=== PATIENT | female | born 1995 | race Caucasian/White ===

== ENCOUNTER 2017-12-08 10:16 | Inpatient (IN) ==
[2017-12-08] MEDS ORDERED: Famotidine 20 MG/2 ML VIAL IVP ONE (10:50)
[2017-12-08] MEDS ORDERED: Oxytocin 20 units/ LR 1000 mL 20 UNIT/1,000 ML BAG IVC ONE (10:50)
[2017-12-08] MEDS ORDERED: CeFAZolin Premix DUPLEX 2,000 MG/50 ML BAG IVPB ONE (10:50)
[2017-12-08] MEDS ORDERED: Metoclopramide 10 MG/2 ML VIAL IVP ONE (10:50)
[2017-12-08] MEDS ORDERED: Ringers Solution, Lactated 1,000 ML ONE (10:54)
[2017-12-08] MEDS ORDERED: Ringers Solution, Lactated 1,000 ML IVC SCH ×3 (11:00→15:34)
[2017-12-08] MEDS ORDERED: Oxytocin 20 units/ LR 1000 mL 20 UNIT/1,000 ML BAG IVC SCH (11:00)
--- NOTE | 2017-12-08 11:14 | OB/GYN History & Physical ---
Date of Encounter: 12/08/17 Time of Encounter: 11:03 Assessment and Plan (1) Pre-eclampsia in third trimester Current visit: Yes Status: Acute at 37 2/7 weeks gestation with twin with elevated BP, weight gain , pain. Both fetuses are breech Admit to labor and delivery for primary section. NPO Ancef 2 gm Routine labwork Pt desires BPS (2) Breech presentation of fetus Current visit: Yes Status: Acute Both fetuses are breech Qualifiers: Fetus number: fetus 1 of multiple gestation Qualified Code(s): O32.1XX1 - Maternal care for breech presentation, fetus 1 (3) Dichorionic diamniotic twin in third trimester Current visit: Yes Status: Acute (4) 37 weeks gestation of Current visit: Yes Status: Acute (5) High-risk in third trimester Current visit: Yes Status: Acute History of Present Illness Chief complaint: Breech presentation of both twins, gestational hypertension HPI: Ms. Alexandra is a 22 year old female at 37 2/7 weeks gestation with twin . She was seen by Dr. Ortega in the office today and was complaining of GARRETT, occasional blurred vision, everything hurting, 3 pound weight gain in the last 3 days. She had a slightly elevated BP with +2 edema in the office today. She was sent over for delivery. She reports good movement. She denies LOF, VB. Blood Type: A+ GBS negative Hep B nonreactive RPR nonreactive HIV negative Rubella Immune Varicella Immune agree with above: Xiang Ortega note Patient is a 22-year-old 3 para 2 at 37-2/7 weeks twin gestation who was sent in from the office for delivery secondary to preeclampsia. The patient is a known twin gestation was scheduled for a primary section next week due to breech breech presentation. 4 the patient earlier this week she was noted at gained 5 pounds in 1 week blood pressure was elevated and she was spilling protein patient was asymptomatic at that time NST was reassuring PIH labs were obtained. Labs to come back showing all laps normal except AST which was elevated patient was scheduled to come in today for repeat blood pressure and assessment patient blood pressure was elevated again in the office she gained 3 pounds in 3 days and today she was complaining of headaches blurred vision and occasional scotoma. Patient is not feeling well states has started to get more swollen and hurting everywhere. Case was discussed with Dr. Coon who agreed patient should be delivered due to development of preeclampsia. Because baby is still breech breech section will be called. She has been having some contractions is feeling movement to both babies. Past Med Surg Social Fam HX - Past Medical History Medical history: no medical history, other Psychiatric history: no psych history - Past Surgical History Surgical History: no surgical history - Social History Smoking Status: Never smoker Smokeless Tobacco Status: No Alcohol use: occasionally Drug use: none - Family History Mother Living Status: Still Living Hx Family Cardiac Disorders: No Hx Family Respiratory Disorders: No Hx Family Cancer: No Hx Family GI Disorders: No Hx Family Endocrine Disorder: No Hx Family Neuromuscular Disorders: No Hx Family Neurologic Disorders: No Hx Family HEENT Disorders: No Hx Family Autoimmune Disorders: No Obstetrical History - Pregnancies : 3 Para: 2 Term: 2 : 0 Ab's: 0 Livin Medications and Allergies [id number]/Iron Fumarate/FA/Dss [ 19 Tablet] 1 each PO DAILY 12/29/15 [ History] Docusate [Colace] 100 mg PO BID #30 capsule 12/30/15 [Rx] Ibuprofen [Motrin] 600 mg PO TID PRN #30 tablet 12/30/15 [Rx] Ibuprofen [Motrin] 600 mg PO Q8HR PRN #20 tab 04/05/16 [Rx] Penicillin VK 500 mg PO QID #40 tablet 04/05/16 [Rx] traMADol [Ultram] 50 - 100 mg PO Q8HR PRN #20 tablet 04/05/16 [Rx] Vit Calc,Iron,Folic [ Vitamins] 1 each PO DAILY #90 tablet [Rx] 3 Allergy/AdvReac Type Severity Reaction Status Date / Time No Known Allergies Allergy Verified 12/19/15 01:08 Review of System OB All systems PM: reviewed and no additional remarkable complaints except as stated Exam - Constitutional Constitutional: well developed, well nourished, no acute distress, average body habitus - HEENT HEENT: PERRL, Normocephaly, Mucus Membranes Moist - Neck Neck exam: full ROM, normal inspection, trachea midline - Lungs Respiratory exam: CTAB - Cardiovascular Cardiovascular exam: RRR, +S1, +S2 - Abdomen Abdomen: Present: bowel sounds normal, gravid, non tender - Extremities Extremities exam: normal capillary refill, normal inspection, pedal edema, warm , radial pulses palpable and symmetrical Deep Tendon Reflex Grade: 2+ Normal - Vagina Vagina: Present: normal moisture - Cervix Dilation: 0 (closed) Effacement: 80 (ballotable) - Uterus Uterus exam: Present: normal size, normal contour Results Result Diagrams: 12/08/17 11:05 All other labs normal. - Attending Attestation I examined this patient and my medical decision-making was reviewed with the Resident Physician. I agree with the documented findings, disposition and treatment plan as described except to the extent set forth below. Javed Ortega
[2017-12-08 11:29] LABS: Basophils % 0.3 %; Eosinophils % 0.2 %; Hematocrit 38.4 % (35.3-44.9); Hemoglobin 13.2 g/dL (11.5-15.4); Immature Granulocytes % 0.3 % (0-4); Lymphocytes # 1.3 K/mcL (0.6-4.6); Lymphocytes % 10.9 %; Mean Corpuscular HGB Conc 34.4 g/dL (31.6-35.5); Mean Corpuscular Hemoglobin 29.5 pg (28.0-33.3); Mean Corpuscular Volume 85.7 fL (83.0-100.0); Mean Platelet Volume 11.3 fL (9.4-12.4); Monocytes % 8.6 %; Neutrophils # 9.6 K/mcL (1.6-8.9); Platelet Count 209 K/mcL (140-400); Red Blood Count 4.48 M/mcL (3.82-4.97); Red Cell Distribution Width 12.8 % (11.5-14.5); Segmented Neutrophils % 79.7 %
[2017-12-08] MEDS ORDERED: *HR* FentaNYL (PF) 100 MCG/2 ML VIAL ONE (11:39)
[2017-12-08] MEDS ORDERED: Morphine Sulfate/PF 5mg/10mL Vial ONE (11:39)
[2017-12-08] MEDS ORDERED: Ondansetron 4 MG/2 ML VIAL ONE (11:40)
[2017-12-08] MEDS ORDERED: *HR* Phenylephrine 10 MG/ML VIAL ONE (11:40)
[2017-12-08] MEDS ORDERED: *HR* Oxytocin 10 UNIT/ML VIAL IM ONE (11:40)
[2017-12-08] MEDS ORDERED: Water for inj. (sterile) 10 ML IV ONE (11:40)
[2017-12-08] MEDS ORDERED: EPHEDrine 50 MG/ML VIAL ONE (11:40)
[2017-12-08] MEDS ORDERED: Acetaminophen IV 1,000 MG/100 ML INFUS..BTL IVPB ONE (11:41)
[2017-12-08] MEDS ORDERED: Lidocaine -MPF 1% 5 ML AMPUL ONE (11:44)
[2017-12-08 11:52] LABS: Alanine Aminotransferase 48 Units/L (7-52); Aspartate Amino Transferase 29 Units/L (13-39); BUN/Creatinine Ratio 14 (6-26); Blood Urea Nitrogen 7 mg/dL (6-20); Lactate Dehydrogenase 147 Units/L (140-271); Uric Acid 5.7 mg/dL (2.3-7.6); eGFR For African Americans > 60 (> 60); eGFR For Non-African Americans > 60 (> 60)
--- NOTE | 2017-12-08 11:59 | Anesthesia Evaluation PreOp ---
Date of Encounter: 12/08/17 Time of Encounter: 11:57 - Past History Planned Operation: Primary csection for twin breech presentation Cardiac History: Denies any Significant Hx Pulmonary History: Denies Any Significant HX FENCE ERECTOR History: Denies Any Significant HX Other Medical History: Denies Any Significant HX Anesthesia History: Past Anesthesia (none, pt had spinal headache with previous epidural placement) Alcohol Use: occasionally Drug use: none Medications and Allergies Lvt417/Iron Fumarate/FA/Dss [ 19 Tablet] 1 each PO DAILY 12/29/15 [ History] Docusate [Colace] 100 mg PO BID #30 capsule 12/30/15 [Rx] Ibuprofen [Motrin] 600 mg PO TID PRN #30 tablet 12/30/15 [Rx] Ibuprofen [Motrin] 600 mg PO Q8HR PRN #20 tab 04/05/16 [Rx] Penicillin VK 500 mg PO QID #40 tablet 04/05/16 [Rx] traMADol [Ultram] 50 - 100 mg PO Q8HR PRN #20 tablet 04/05/16 [Rx] Vit Calc,Iron,Folic [ Vitamins] 1 each PO DAILY #90 tablet [Rx] 3 Allergy/AdvReac Type Severity Reaction Status Date / Time No Known Allergies Allergy Verified 12/19/15 01:08 - Meds/Allergy Pre-op Review Medications Reviewed: Yes Allergies Reviewed: Yes Beta Blockers on Current Med List: No Anesthesia Results - Labs 12/08/17 11:05 12/08/17 11:05 Anesthesia Exam O2 Sat Height 1.63 m Weight 114 kg NPO (# of Hours): >8 - HEENT Pupil (Motor): Pupils equal, EOMI Mallampati: II Teeth: Normal Oral Opening: Greater than 3 - FENCE ERECTOR LOC: Oriented FENCE ERECTOR Motor: Normal RUE, Normal LUE, Normal RLE, Normal LLE, Normal Face FENCE ERECTOR Sensory: Normal: RUE, LUE, RLE, LLE, Face - Cardiac Rhythm: Regular - Pulmonary Breath Sounds: bilateral Clear Respiratory Effort: Symmetrical Anesthesia Assess/Plan ASA Score: 2 Modified Aimee Scale for Level of Consciousness: Cooperative, oriented, and tranquil Anesthetic Plan: General (plan b), Regional (Spinal) Monitoring Plan: Standard Monitors Recovery Plan: PACU
[2017-12-08 12:06] LABS: Protein/Creatinine Ratio,Urine 0.25 mg/mg (0.00-0.20)
[2017-12-08 12:09] LABS: Amphetamine Screen,Urine Negative ng/mL (Cutoff=1000); Barbiturate Screen,Urine Negative ng/mL (Cutoff=200); Benzodiazepines Screen,Urine Negative ng/mL (Cutoff=200); Cannabinoid Screen,Urine Negative ng/mL (Cutoff = 50); Cocaine Screen,Urine Negative ng/mL (Cutoff= 300); Opiate Screen,Urine Negative ng/mL (Cutoff=300); Phencyclidine Screen,Urine Negative ng/mL (Cutoff=25)
--- NOTE | 2017-12-08 12:49 | Anesthesia Procedures ---
Date of Encounter: 12/08/17 Time of Encounter: 12:38 Procedures: Anesthesia - Epidural/Spinal Patient ID/Chart reviewed: Yes Patient examined: Yes OB Eval: Gestational age: 37.2 OB Eval: : 3 OB Eval: Hx Para: 2 OB Eval: Contractions: Non-stressed pattern Consent Obtained: Yes Supplemental Oxygen: Nasal Cannula Supplemental Oxygen Rate (L/min): 2 Site Prep: Aseptic Technique, Sterile prep and drape, Povidone-Iodine 1% Patient position: upright Local Anesthetic: Lidocaine 1% Amount of Local Anesthetic used: 3 Interspace Used: L4-L5 Blood: No CSF: Yes Paresthesia: No Spinal Needle Gauge: 25 Spinal Dose: 2.5ml 0.5%bupiv, 10mcg fentanyl, 0.3mg duramorph Procedure: pt tolerated procedure well. no complications. vss. fhr stable. see anes record for complete vitals. sensory level to t4 prior to incision.
[2017-12-08] MEDS ORDERED: Ondansetron 4 MG/2 ML VIAL IVP ONE (12:50)
[2017-12-08] MEDS ORDERED: MORPHINE SUL Oral CONC 10 MG/0.5 ML ORAL.SYG SL PRN (12:50)
[2017-12-08] MEDS ORDERED: Naloxone 0.4 MG/ML INJ IVP PRN ×2 (12:50→15:34)
[2017-12-08] MEDS ORDERED: Albuterol 2.5 MG/3 ML NEBULIZER IH ONE (12:50)
[2017-12-08] MEDS ORDERED: *HR* OxyCODONE Immed Rel 5 MG TABLET PO PRN (12:50)
[2017-12-08] MEDS ORDERED: *HR* Promethazine 25 MG/ML VIAL IVP PRN (12:50)
[2017-12-08] MEDS ORDERED: *HR* HYDROmorphone 2 MG TABLET PO PRN (12:50)
--- NOTE | 2017-12-08 13:46 | OB/GYN Procedure Note ---
Section - Date of procedure: 12/08/17 Preop diagnosis: other (Intrauterine at 37-2/7 weeks, twin gestation, breech breech presentation, preeclampsia, desires sterilization) Post-op diagnosis: same Procedure: primary low transverse, bilateral tubal ligation Surgeon: Frankie Ortega Estimated blood loss (cc): 500 Was there an carpenter assistant present: Yes [employer] Software Developer: Venus Cisneros ([email or web address]) Anesthesiologist: Saritha Jimenez Spectacle Truer: Jonas Morfin Anesthesia Type: Spinal section complications: none Disposition: L&D Recovery Room Specimens: Placenta, Right tube segment, Left tube segment - (s) A Delivery Date: 12/08/17 Delivery Time: 13:02 Presentation: dottie breech Route of delivery: other ( section) Gender: Male Viability: Viable Pounds: 6 Ounces: 7 Gram Weight: 2.91 kg at 1 minute: 9 at 5 minutes: 9 Shoulder Dystocia: not encountered Placenta: spontaneous Cord: 3 umbilical vessels B Infant Delivery Date: 12/08/17 Delivery Time: 13:03 Presentation: footling breech Route of delivery: other ( section) Gender: Male Viability: Viable Pounds: 6 Ounces: 12 Gram Weight: 3.06 kg at 1 minute: 8 at 5 minutes: 9 Placenta: spontaneous Cord: 3 umbilical vessels - Narrative Narrative: Patient is a 22-year-old 3 para 2 at 37-2/7 weeks who was sent in from the office for delivery secondary to preeclampsia. Patient is a twin gestation breech breech presentation had gained 3 pounds since her last visit 3 days ago and 5 pounds prior to that patient was complaining of headaches blurred vision and scotomata and blood pressures were elevated. Patient had PIH labs 3 days ago AST was abnormal patient was not feeling well today had a fundal height of 56 cm and decided to go ahead and do the today. Procedure: Patient was taken to the operating room where spinal anesthesia was found be adequate. She was placed in the dorsal supine position with a leftward tilt and prepped and draped in usual fashion. Timeout was then obtained. A Pfannenstiel incision was then made and carried down through the underlying tissue to the fascia was identified. The fascia was nicked in midline extended laterally with Guzman scissors. The superior and inferior edges of the fascia were grasped tented up dissected off the rectus muscles. Rectus muscles were in midline parietal peritoneum was identified tented up and entered sharply. This was extended superiorly and inferiorly with Metzenbaum scissors. The bladder blade was inserted the vesicouterine peritoneum was identified tented up and entered sharply. This was extended laterally the bladder flap was created digitally. The lower uterine segment was incised with a scalpel extended laterally with digital manipulation. The membranes were then ruptured large amounts of clear fluid is noted. First baby was noted to be in a dottie breech presentation the was then fully delivered across the chest followed by delivery of the head. The cord was clamped and cut and was handed off to waiting pediatric team. Cord blood was not necessary at this time membranes were then ruptured on twin B again large amounts of clear fluid noted. It was noted this time this baby was in a footling breech the feet were then grasped with a through the incision followed by the infant's hips on something for across the chest and on that head was delivered. Cord was clamped and cut infant was handed off to waiting pediatric team. No cord blood was needed on this baby either placenta was then delivered spontaneously 3 vessel cords both cords. Uterus was then exteriorized cleaned of all clots and debris then the lower uterine segment was closed using an 0 Vicryl in a running locking stitch by a 2 layer closure. Good hemostasis was noted. Attention was then turned to the fallopian tubes each tube was grasped at the ampullary region and a 2 cm portion of each tube was suture ligated with O plain 2 before the knuckle was excised. Good hemostasis was noted. The lower uterine segment was visualized again no bleeding noted uterus was returned to the abdomen the gutters were cleaned of all clots and debris and copiously irrigated with no active bleeding. The parietal peritoneum was then brought together by [id number] suture the fascia was closed using a #1 stratafix stitch and the skin was closed using a 4 -0 Vicryl and a subcuticular manner. A PRIMEO dressing was applied and the patient was taken to the recovery room in stable condition. All needles AND sponge counts were correct 3 she did receive preoperative antibiotics.
[2017-12-08] MEDS ORDERED: Sennosides 8.6 MG TABLET PO PRN (15:34)
[2017-12-08] MEDS ORDERED: Ondansetron 4 MG/2 ML VIAL IVP PRN (15:34)
[2017-12-08] MEDS ORDERED: Metoclopramide 10 MG/2 ML VIAL IVP PRN (15:34)
[2017-12-08] MEDS ORDERED: *HR* OxyCODONE/APAP 10/325 TABLET PO PRN (15:34)
[2017-12-08] MEDS ORDERED: Simethicone 80 MG TAB.CHEW PO PRN (15:34)
--- NOTE | 2017-12-08 16:37 | Anesthesia Evaluation Post Op ---
Date of Encounter: 12/08/17 Time of Encounter: 16:36 - Lungs Lungs: Clear Ascult./Percussion - Airway Airway: Non-obstructed - Cardiovascular Regular Rate, Baseline Rhythm - Mental Status Mental Status: Alert & Oriented, Answers Appropriately - Pain Pain Scale: 4 Pain Scale used: Numeric (1 - 10) - Nausea Vomiting Nausea Vomiting: Not Present - Hydration Hydration: NPO, Packer catheter - Discharge PostOp Status: Transfer Patient to floor
[2017-12-08] MEDS: Oxytocin 20 units/ LR 1000 mL 20 UNIT/1,000 ML BAG IVC SCH (17:02)
[2017-12-09] MEDS: Oxytocin 20 units/ LR 1000 mL 20 UNIT/1,000 ML BAG IVC SCH (00:03)
[2017-12-09 01:56] LABS: Basophils # 0.1 K/mcL (0.0-0.2); Basophils % 0.5 %; Eosinophils % 0.1 %; Hematocrit 32.7 % (35.3-44.9); Immature Granulocytes % 0.5 % (0-4); Lymphocytes # 1.1 K/mcL (0.6-4.6); Lymphocytes % 10.3 %; Mean Corpuscular HGB Conc 34.6 g/dL (31.6-35.5); Mean Corpuscular Hemoglobin 29.4 pg (28.0-33.3); Mean Corpuscular Volume 85.2 fL (83.0-100.0); Mean Platelet Volume 11.3 fL (9.4-12.4); Monocytes # 1.2 K/mcL (0.0-1.3); Monocytes % 11.1 %; Neutrophils # 8.6 K/mcL (1.6-8.9); Platelet Count 174 K/mcL (140-400); Red Blood Count 3.84 M/mcL (3.82-4.97); Red Cell Distribution Width 12.8 % (11.5-14.5); Segmented Neutrophils % 77.5 %
[2017-12-09 02:01] LABS: Hemoglobin 11.3 g/dL (11.5-15.4)
[2017-12-09] MEDS: Ibuprofen 600 MG TABLET PO PRN ×3 (02:45→21:01)
[2017-12-09] MEDS: Prenatal Vit/FA 1 EACH TABLET PO SCH (08:04)
[2017-12-09] MEDS: *HR* OxyCODONE/APAP 5/325 TABLET PO PRN ×2 (08:04→20:01)
[2017-12-09] MEDS ORDERED: Prenatal Vit/FA 1 EACH TABLET PO SCH (09:00)
--- NOTE | 2017-12-09 09:28 | OB/GYN Progress Note ---
Date of Encounter: 12/09/17 Time of Encounter: 09:26 - Assessment and Plan (1) Status post section Current Visit: Yes Status: Acute Stable POD#1 Continue current management Anticipate DC tomorrow. Subjective - Subjective Interval history: Pain well managed on po pain medication, tolerates diet, voiding without difficulty, +flatus Patient reports: appetite normal, voiding normally, pain well controlled, ambulating normally [place]: doing well Objective - Vital Signs Latest vital signs: Vital Signs Temp Pulse Resp BP Pulse Ox 12/09/17 08:19 97.9 F 92 16 121/79 12/09/17 08:13 16 12/09/17 03:07 99.6 F 95 18 108/71 96 12/08/17 23:29 99.5 F 94 18 121/79 97 12/08/17 19:25 97.5 F L 88 16 107/71 97 12/08/17 18:15 97.9 F 100 18 123/81 96 12/08/17 17:15 97.7 F 91 16 119/75 97 12/08/17 16:45 97.7 F 96 16 137/85 12/08/17 16:15 97.7 F 82 16 125/78 96 Intake and Output 12/08/17 12/09/17 12/09/17 23:59 07:59 15:59 Intake Total 1000 / 1000 950 / 950 Output Total 625 / 625 250 / 250 300 / 300 Balance 375 / 375 700 / 700 -300 / -300 Intake: IV Fluids 950 / 950 Pitocin 20 unit In 1,000 ml @ 950 / 950 125 mls/hr IVC .Q8H [facility] Rx#: [id number] Oral 1000 / 1000 0 / 0 Output: Urine 0 / 0 300 / 300 Catheter 625 / 625 250 / 250 Urethral (Packer) 400 / 400 250 / 250 Other: Weight 95.7 kg 106.005 kg Patient Weight 12/09/17 23:59 Weight 106.005 kg - Exam Lungs: bilateral: normal Chest: Normal S1, Normal S2 Extremities: Present: normal Abdomen: Present: normal appearance, soft, gravid Incision: Present: normal, dry, intact Comments: fundus at U - Labs Labs: Laboratory Results - last 24 hr 12/08/17 12/08/17 12/08/17 10:50 10:52 11:05 WBC 12.1 H RBC 4.48 Hgb 13.2 Hct 38.4 MCV 85.7 MCH 29.5 MCHC 34.4 RDW 12.8 Plt Count 209 MPV 11.3 Immature Gran % 0.3 Seg Neutrophils % 79.7 Lymphocytes % 10.9 Monocytes % 8.6 Eosinophils % 0.2 Basophils % 0.3 Neutrophils # 9.6 H Lymphocytes # 1.3 Monocytes # 1.0 Eosinophils # 0.0 Basophils # 0.0 BUN Creatinine Est GFR ( Amer) Est GFR (Non-Af Amer) BUN/Creatinine Ratio Uric Acid AST ALT Lactate Dehydrogenase Urine Creatinine 186 Protein/Creatinin Ratio 0.25 H Urine Total Protein 46 H Urine Opiates Screen Negative Ur Barbiturates Screen Negative Ur Phencyclidine Scrn Negative Ur Amphetamines Screen Negative U Benzodiazepines Scrn Negative Urine Cocaine Screen Negative U Marijuana (THC) Screen Negative Blood Type Antibody Screen 12/08/17 12/08/17 12/09/17 11:05 11:05 01:33 WBC 11.0 RBC 3.84 Hgb 11.3 L D Hct 32.7 L MCV 85.2 MCH 29.4 MCHC 34.6 RDW 12.8 Plt Count 174 MPV 11.3 Immature Gran % 0.5 Seg Neutrophils % 77.5 Lymphocytes % 10.3 Monocytes % 11.1 Eosinophils % 0.1 Basophils % 0.5 Neutrophils # 8.6 Lymphocytes # 1.1 Monocytes # 1.2 Eosinophils # 0.0 Basophils # 0.1 BUN 7 Creatinine 0.50 L Est GFR ( Amer) > 60 Est GFR (Non-Af Amer) > 60 BUN/Creatinine Ratio 14 Uric Acid 5.7 AST 29 ALT 48 Lactate Dehydrogenase 147 Urine Creatinine Protein/Creatinin Ratio Urine Total Protein Urine Opiates Screen Ur Barbiturates Screen Ur Phencyclidine Scrn Ur Amphetamines Screen U Benzodiazepines Scrn Urine Cocaine Screen U Marijuana (THC) Screen Blood Type A POSITIVE Antibody Screen NEGATIVE
[2017-12-10] MEDS: Ibuprofen 600 MG TABLET PO PRN (05:23)
[2017-12-10] MEDS: *HR* OxyCODONE/APAP 5/325 TABLET PO PRN (05:23)
--- NOTE | 2017-12-10 07:42 | Discharge Summary ---
Date of Encounter: 12/10/17 Time of Encounter: 07:40 - Discharge Diagnosis (1) Pre-eclampsia in third trimester Priority: Secondary Status: Acute (2) Breech presentation of fetus Priority: Secondary Status: Acute Qualifiers: Fetus number: fetus 1 of multiple gestation Qualified Code(s): O32.1XX1 - Maternal care for breech presentation, fetus 1 (3) Dichorionic diamniotic twin in third trimester Priority: Secondary Status: Acute (4) 37 weeks gestation of Priority: Secondary Status: Acute (5) High-risk in third trimester Priority: Secondary Status: Acute (6) Status post section Priority: Primary Status: Acute - Discharge Medications Prescriptions: OxyCODONE/APAP 5/325 [Percocet 5/325 MG] 1 each PO Q4HR PRN 7 Days #28 tablet PRN Reason: Moderate pain 4-6 Ferrous Sulfate 325 mg PO DAILY #30 tablet Home Medications: Docusate [Colace] 100 mg PO BID #30 capsule 12/30/15 [Rx] Ibuprofen [Motrin] 600 mg PO Q8HR PRN #20 tab 04/05/16 [Rx] Vit Calc,Iron,Folic [ Vitamins] 1 each PO DAILY #90 tablet [Rx] Ferrous Sulfate 325 mg PO DAILY #30 tablet 12/10/17 [Rx] OxyCODONE/APAP 5/325 [Percocet 5/325 MG] 1 each PO Q4HR PRN 7 Days #28 tablet [Rx] Allergies/Adverse Reactions: 3 Allergy/AdvReac Type Severity Reaction Status Date / Time No Known Allergies Allergy Verified 12/19/15 01:08 Data Procedures and tests throughout hospitalization: Laboratory Tests 12/08/17 12/08/17 12/08/17 10:50 10:52 11:05 WBC 12.1 H RBC 4.48 Hgb 13.2 Hct 38.4 MCV 85.7 MCH 29.5 MCHC 34.4 RDW 12.8 Plt Count 209 MPV 11.3 Immature Gran % 0.3 Seg Neutrophils % 79.7 Lymphocytes % 10.9 Monocytes % 8.6 Eosinophils % 0.2 Basophils % 0.3 Neutrophils # 9.6 H Lymphocytes # 1.3 Monocytes # 1.0 Eosinophils # 0.0 Basophils # 0.0 BUN Creatinine Est GFR ( Amer) Est GFR (Non-Af Amer) BUN/Creatinine Ratio Uric Acid AST ALT Lactate Dehydrogenase Urine Creatinine 186 Protein/Creatinin Ratio 0.25 H Urine Total Protein 46 H Urine Opiates Screen Negative Ur Barbiturates Screen Negative Ur Phencyclidine Scrn Negative Ur Amphetamines Screen Negative U Benzodiazepines Scrn Negative Urine Cocaine Screen Negative U Marijuana (THC) Screen Negative Blood Type Antibody Screen 12/08/17 12/08/17 12/09/17 11:05 11:05 01:33 WBC 11.0 RBC 3.84 Hgb 11.3 L D Hct 32.7 L MCV 85.2 MCH 29.4 MCHC 34.6 RDW 12.8 Plt Count 174 MPV 11.3 Immature Gran % 0.5 Seg Neutrophils % 77.5 Lymphocytes % 10.3 Monocytes % 11.1 Eosinophils % 0.1 Basophils % 0.5 Neutrophils # 8.6 Lymphocytes # 1.1 Monocytes # 1.2 Eosinophils # 0.0 Basophils # 0.1 BUN 7 Creatinine 0.50 L Est GFR ( Amer) > 60 Est GFR (Non-Af Amer) > 60 BUN/Creatinine Ratio 14 Uric Acid 5.7 AST 29 ALT 48 Lactate Dehydrogenase 147 Urine Creatinine Protein/Creatinin Ratio Urine Total Protein Urine Opiates Screen Ur Barbiturates Screen Ur Phencyclidine Scrn Ur Amphetamines Screen U Benzodiazepines Scrn Urine Cocaine Screen U Marijuana (THC) Screen Blood Type A POSITIVE Antibody Screen NEGATIVE Date of admission: 12/08/17 10:16 Primary care physician: PCP NONE Discharging clinician: Frankie Ortega Anticipated date of discharge: 12/10/17 - Patient Status Disposition: Home, Self-Care Condition: Good Functional capacity at discharge: independent ambulation Overall status at discharge: patient is progressing back to baseline - Discharge Instructions Follow Up With: NONE,PCP [Primary Care Provider] - Frankie Ortega DO [Partnered Physician] - - Diet and Activity Activity: increase activity as tolerated Diet: advance to your usual diet Hospital Course Reason for admission: other (Intrauterine at 37-2/7 weeks, twin gestation, breech breech presentation, preeclampsia) Delivery: section Episiotomy: none Laceration: none Other procedures: none complications: none Discharge diagnosis: IUP at term delivered baby: twins Hospital course: Patient is a 22-year-old 3 para 2 at 37-2/7 weeks' gestation who was sent in from the office secondary to preeclampsia. Patient blood pressure had elevated she had abnormal labs and was not feeling well. Patient was a scheduled section later this week because of breech breech presentation. Because of the situation section was performed at that time. Surgery went without any complications both babies did well. Patient's hospital course was unremarkable diet was advanced slowly IV was removed patient was tolerating diet and pain was well-controlled. By hospital day #2 patient was ready to go home she will be discharged home with prescription for Percocet 5 mg #28 one every 6 hours as needed for pain, iron sulfate 325 mg 1 daily patient will follow-up in the office in 2 weeks. Patient's condition at the time of discharge was stable. Time Attestation: Total time spent providing and/or coordinating discharge services: - VTE Documentation of Mechanical Device: Intermittent pneumatic compression device Exam - Constitutional Vitals: Temp Pulse Resp BP Pulse Ox 98.1 F 92 20 119/75 98 12/09/17 20:00 12/09/17 20:00 12/09/17 20:00 12/09/17 20:00 12/09/17 20:00 General appearance IM: mild distress, A&O X 3 - Respiratory Respiratory exam: Present: CTAB - Cardiovascular Cardiovascular exam IM: Present: RRR - GI/Abdominal GI/Abdominal exam IM: normal bowel sounds Incision: normal, dressed - Rectal Rectal exam: deferred - Uterine Tone: Firm Uterus Position: At Umbilicus
[2017-12-10] MEDS: Prenatal Vit/FA 1 EACH TABLET PO SCH (08:05)
[2017-12-10 08:07] VITALS: BP 107/68
== END 2017-12-10 12:05 | disposition home or self-care (01) | DRG 765 ==
LOC: 1NENULAB 10:16 → 1NENUOBS 14:29
PROVIDERS: ADMIT Obstetrics & Gynecology; ATTEND Obstetrics & Gynecology